=== PATIENT | female | born 1935 | race Caucasian/White ===

== ENCOUNTER 2017-03-19 09:18 | Emergency (ER) | payer OTHER ==
[2017-03-19 09:31] VITALS: TEMP 97.8; BMI 29.5
--- NOTE | 2017-03-19 09:45 | PDOC ---
Attending Attestation - Resident Resident Name: HomerArchie ramirez - ED Attending Attestation I have performed the following: I have examined & evaluated the patient, The case was reviewed & discussed with the resident, I agree w/resident's findings & plan, Exceptions are as noted - HPI HPI: 03/19/17 09:56 81y F hx of scoliosis, CAD, afib, hypothyroidism, hypertension, left breast ca s /p mastectomy presents with epistaxis. Pt typically gets epistaxis a few times a year typically but usually stops with pressure, today it persisted for approx 30 min. epistaxis stopped with pressure by ems prior to arrival. The pt denies any chest pain, shortness of breath, lightheadedness, palpitations. physical exam GENERAL: The patient is awake, alert, and fully oriented, Nontoxic - in no acute distress. HEAD: Normocephalic, atraumatic. EYES: extraocular movements intact, sclera anicteric, conjunctiva clear. ENT: Normal voice, Moist mucous membranes, dried blood in nare, no active bleeding currently NECK: Normal range of motion, supple LUNGS: Breath sounds equal, clear to auscultation bilaterally. No wheezes, no rhonchi, no rales. HEART: irregularly irregular, slightly tachycardic ABDOMEN: Soft, nontender, will PO hydrate will ck some basic labs to r/o anemia due to tachycardia 03/19/17 11:03 pts labs normal will recheck the pts vitals anticipate d/c with pmd/ent fu return precautions were discussed - Physicial Exam PE: 03/20/17 07:18 see above - Medical Decision Making 03/20/17 07:18 see above
--- NOTE | 2017-03-19 10:04 | PDOC ---
History of Present Illness - General Chief Complaint: Nasal Bleeding Stated Complaint: Nasal Bleeding Time Seen by Provider: 03/19/17 09:28 History Source: Patient Exam Limitations: No Limitations - History of Present Illness Initial Comments: 03/19/17 10:00 The patient is a 81F with a PMH of HTN, a-fib on plavix and ASA, hypothyroidism , who presented to the ED after an episode of epistaxis. She states that she woke up this morning and had a nose bleed which did not resolve after 20 minutes of applying pressure to her nose.She gets nosebleeds once every few months but they have never been this severe. She also states the got 2 new air conditioning units and has been using them consistently. Social: Does not smoke, drink, or use recreational drugs; lives independently Allergies: PCN Past History - Past Medical History Allergies/Adverse Reactions: Allergies Allergy/AdvReac Type Severity Reaction Status Date / Time Penicillins Allergy Verified 03/19/17 09:31 Home Medications: Ambulatory Orders Quinapril HCl [Accupril -] 10 mg PO DAILY #0 tablet 03/31/13 Acetaminophen [Tylenol .Extra-Strength -] 1,000 mg PO Q6H PRN 09/01/13 Alprazolam [Xanax] 0.25 mg PO DAILY PRN 09/01/13 Aspirin Coated [Ecotrin -] 81 mg PO HS 09/01/13 Calcium Carbonate [Tums] 200 mg PO PRN PRN 09/01/13 Cholecalciferol (Vitamin D3) [Vitamin D3] 2,000 unit PO DAILY 09/01/13 Cyanocobalamin [Vitamin B12 -] 1,000 mcg PO DAILY 09/01/13 Docusate Sodium [Colace -] 200 mg PO DAILY 09/01/13 Glucosamine HCl/MSM [Glucosamine MSM Liquid] 480 ml PO PRN PRN 09/01/13 Levothyroxine [Synthroid -] 25 mcg PO ASDIR 09/01/13 Multivitamin with Minerals [Multivitamins with Minerals] 1 each PO DAILY Pravastatin Sodium [Pravachol -] 40 tab PO HS 09/01/13 Triamterene/Hydrochlorothiazid [Triamterene-Hctz 37.5-25 mg Cp] 1 each PO DAILY PRN 09/01/13 Vitamin B Complex 1 each PO DAILY 09/01/13 Clopidogrel Bisulfate [Plavix -] 75 mg PO DAILY #0 05/06/14 Anemia: No Asthma: No Cancer: Yes (RECURRENT LEFT BREAST CA) Cardiac Disorders: Yes (HX AF, CAD) CVA: No COPD: No CHF: No Dementia: No Diabetes: No GI Disorders: Yes (diverticulosis,GERD) Disorders: No HTN: Yes Hypercholesterolemia: Yes Liver Disease: Yes (FATTY LIVER) Seizures: No Thyroid Disease: Yes (NODULES ON THYROID) - Surgical History Abdominal Surgery: Yes (TWISTED COLON) Appendectomy: Yes Cardiac Surgery: No Cholecystectomy: No Lung Surgery: No Neurologic Surgery: No Orthopedic Surgery: No - Psycho/Social/Smoking Cessation Hx Suicidal Ideation: No Smoking History: Never smoked Have you smoked in the past 12 months: No Hx Alcohol Use: No Drug/Substance Use Hx: No Substance Use Type: None Hx Substance Use Treatment: No Review of Systems - Review of Systems Able to Perform ROS?: Yes Is the patient limited Romansh proficient: No Constitutional: No: Chills, Fever, Weakness HEENTM: Yes: Nose Bleeding. No: Mouth Pain, Difficulty Swallowing Respiratory: No: Cough, Shortness of Breath Cardiac (ROS): Yes: Irregular Heart Rate. No: Chest Pain ABD/GI: Yes: Constipated (baseline). No: Diarrhea, Nausea, Vomiting : No: Burning, Dysuria, Discharge Neurological: Yes: Headache, Weakness. No: Numbness Hematologic/Lymphatic: No: Easy Bleeding, Easy Bruising *Physical Exam - Vital Signs Last Vital Signs Temp Pulse Resp BP Pulse Ox 97.8 F 110 H 20 141/92 98 03/19/17 09:27 03/19/17 09:27 03/19/17 09:27 03/19/17 09:27 03/19/17 09:27 - Physical Exam General Appearance: Yes: Nourished, Appropriately Dressed. No: Apparent Distress, Disheveled HEENT: positive: Other (dried blood in nasal mucosa). negative: Tonsillar Exudate, Tonsillar Erythema, Rhinorrhea Respiratory/Chest: positive: Lungs Clear, Normal Breath Sounds. negative: Chest Tender, Respiratory Distress Cardiovascular: positive: S1, S2, Irregularly Irregular Gastrointestinal/Abdominal: positive: Flat, Soft. negative: Tender, Guarding, Rebound, Tenderness Extremity: positive: Normal Inspection, Normal Range of Motion Integumentary: positive: Normal Color, Dry, Warm Neurologic: positive: Fully Oriented, Alert, Normal Mood/Affect ED Treatment Course - LABORATORY CBC & Chemistry Diagram: 03/19/17 10:00 03/19/17 10:00 Medical Decision Making - Medical Decision Making 03/19/17 10:07 The patient is an 81F who presents with a resolved episode of epistaxis. I have ordered basic labs to ensure a stable hgb and electrolytes. 03/19/17 11:22 Repeat vitals WNL. Labs WNL. Patient agrees for discharge. *DC/Admit/Observation/Transfer Diagnosis at time of Disposition: Epistaxis not due to trauma - Discharge Dispostion Disposition: HOME Condition at time of disposition: Improved Admit: No - Patient Instructions Printed Discharge Instructions: Nosebleed, DI for Nosebleed - Attestations Physician Attestion: 03/19/17 11:22 I, Dr. Archie Mejia, attest that this document has been prepared under my direction and personally reviewed by me in its entirety. I further attest, that it accurately reflects all work, treatment, procedures and medical decision -making performed by me.
[2017-03-19 10:11] LABS: BASOPHIL 0.2 % (0-2.0); EOSINOPHIL 0.2 % (0-4.5); MCHC 33.5 g/dl (32.0-36.0); MEAN CELL VOLUME 89.6 fl (80-96); MEAN PLT VOLUME 10.7 fl (7.5-11.1); NEUTROPHILS 73.6 % (42.8-82.8); PLATELET COUNT 66 K/MM3 (134-434); RDW 16.3 % (11.6-15.6); WHITE BLOOD COUNT 6.9 K/mm3 (4.0-10.0)
[2017-03-19 10:25] LABS: ALBUMIN 3.8 g/dl (3.4-5.0); ANION GAP 5 (8-16); CALCIUM 8.7 mg/dL (8.5-10.1); CO2 27 mmol/L (21-32); CREATININE 0.5 mg/dL (0.55-1.02); GLUCOSE,RANDOM 101 mg/dL (74-106); SGOT/AST 12 U/L (15-37); SGPT/ALT 24 U/L (12-78); TOT PROT 6.9 g/dl (6.4-8.2)
[2017-03-19 10:26] LABS: ALK PHOS 112 U/L (45-117)
[2017-03-19 10:36] LABS: INR 1.17 (0.82-1.09); PROTHROMBIN TIME (PATIENT) 12.9 SEC (9.98-11.88)
[2017-03-19 11:38] VITALS: BP 145/83; PULSE 92
== END 2017-03-19 11:38 | disposition home or self-care (01) ==
LOC: JER 09:18
DX: R04.0 Epistaxis (principal); I25.10 Atherosclerotic heart disease of native coronary artery without angina pectoris; I10 Essential (primary) hypertension; I48.91 Unspecified atrial fibrillation; Z79.01 Long term (current) use of anticoagulants; E03.9 Hypothyroidism, unspecified; Z85.3 Personal history of malignant neoplasm of breast; K59.00 Constipation, unspecified
CPT/HCPCS: 36415; 80053; 85025; 85610; 99283-25

== ENCOUNTER 2019-06-30 12:57 | Emergency (ER) | payer OTHER ==
[2019-06-30 13:05] VITALS: BP 159/95; PULSE 123; TEMP 97.5; BMI 29.5
--- NOTE | 2019-06-30 13:11 | PDOC ---
Rapid Medical Evaluation Chief Complaint: Nasal Bleeding Time Seen by Provider: 06/30/19 13:07 Medical Evaluation: Allergies Allergy/AdvReac Type Severity Reaction Status Date / Time Penicillins Allergy Verified 06/30/19 13:00 Vital Signs Temp Pulse Resp BP Pulse Ox 97.5 F L 123 H 20 159/95 98 06/30/19 13:01 06/30/19 13:01 06/30/19 13:01 06/30/19 13:01 06/30/19 13:01 06/30/19 13:07 The patient is an 83 y/o F on plavix presents to the ER today for nasal bleeding since 12pm today. Exam: clot forming in the L nare. No blood noted in the posterior pharynx Orders: defer to provider Pt to proceed to the ER for further evaluation Discharge Disposition - Diagnosis Epistaxis not due to trauma - Referrals - Patient Instructions - Post Discharge Activity
--- NOTE | 2019-06-30 13:39 | PDOC ---
History of Present Illness - General Chief Complaint: Nasal Bleeding Stated Complaint: NOSE BLEED Time Seen by Provider: 06/30/19 13:07 - History of Present Illness Initial Comments: 06/30/19 15:28 Pt is an 83 y/o F with a significant PMH of HTN, a-fib on plavix and ASA, hypothyroidism who presents to our Emergency Department due to a nose bleed. Pt endorses that she began to experience a nose bleed this past Sunday; that episode of bleeding resolved on its own. Pt denies any digital manipulation. Pt states her nose began to bleed again earlier today. Also denies any digital manipulation this episode. States he endured a similar bleed approximately 1 year ago where she was evaluated by an ENT physician who cauterized the bleed in her nose. Denies chest pain, shortness of breath, nausea, vomiting, or any other symptoms. Past History - Past Medical History Allergies/Adverse Reactions: Allergies Allergy/AdvReac Type Severity Reaction Status Date / Time Penicillins Allergy Verified 06/30/19 13:00 Home Medications: Ambulatory Orders Quinapril HCl [Accupril -] 10 mg PO DAILY #0 tablet 03/31/13 Acetaminophen [Tylenol .Extra-Strength -] 1,000 mg PO Q6H PRN 09/01/13 Alprazolam [Xanax] 0.25 mg PO DAILY PRN 09/01/13 Aspirin Coated [Ecotrin -] 81 mg PO HS 09/01/13 Calcium Carbonate [Tums] 200 mg PO PRN PRN 09/01/13 Cholecalciferol (Vitamin D3) [Vitamin D3] 2,000 unit PO DAILY 09/01/13 Cyanocobalamin [Vitamin B12 -] 1,000 mcg PO DAILY 09/01/13 Docusate Sodium [Colace -] 200 mg PO DAILY 09/01/13 Glucosamine HCl/MSM [Glucosamine MSM Liquid] 480 ml PO PRN PRN 09/01/13 Levothyroxine [Synthroid -] 25 mcg PO ASDIR 09/01/13 Multivitamin with Minerals [Multivitamins with Minerals] 1 each PO DAILY Pravastatin Sodium [Pravachol -] 40 tab PO HS 09/01/13 Triamterene/Hydrochlorothiazid [Triamterene-Hctz 37.5-25 mg Cp] 1 each PO DAILY PRN 09/01/13 Vitamin B Complex 1 each PO DAILY 09/01/13 Clopidogrel Bisulfate [Plavix -] 75 mg PO DAILY #0 05/06/14 Anemia: No Asthma: No Cancer: Yes (RECURRENT LEFT BREAST CA) Cardiac Disorders: Yes (HX AF, CAD) CVA: No COPD: No CHF: No Dementia: No Diabetes: No GI Disorders: Yes (diverticulosis,GERD) Disorders: No HTN: Yes Hypercholesterolemia: Yes Liver Disease: Yes (FATTY LIVER) Seizures: No Thyroid Disease: Yes (NODULES ON THYROID) - Surgical History Abdominal Surgery: Yes (TWISTED COLON) Appendectomy: Yes Cardiac Surgery: No Cholecystectomy: No Lung Surgery: No Neurologic Surgery: No Orthopedic Surgery: No - Immunization History Immunization Up to Date: Yes - Psycho Social/Smoking Cessation Hx Smoking History: Never smoked Have you smoked in the past 12 months: No Hx Alcohol Use: No Drug/Substance Use Hx: No Substance Use Type: None Hx Substance Use Treatment: No *Physical Exam - Vital Signs Last Vital Signs Temp Pulse Resp BP Pulse Ox 97.5 F L 123 H 20 159/95 98 06/30/19 13:01 06/30/19 13:01 06/30/19 13:01 06/30/19 13:01 06/30/19 13:01 Medical Decision Making - Medical Decision Making 06/30/19 15:32 Pt given TXA to nasal bleed. Vaseline applied to area as well. ENT inspection revealed erythematous area in both nostrils. No acitve bleeding. Discharge - Discharge Information Problems reviewed: Yes Clinical Impression/Diagnosis: Epistaxis not due to trauma Condition: Improved Disposition: HOME - Admission No - Follow up/Referral Referrals: Clarence Aguilar MD [Staff Physician] - Satya Carpio MD [Primary Care Provider] - - Patient Discharge Instructions Patient Printed Discharge Instructions: DI for Nosebleed Additional Instructions: You were treated in our emergency Department due to a nose bleed. Please follow up with your ENT doctor this week. Please return to the emergency department if you begin to experience further bleeding, shortness of breath, chest pain, or any other abnormal symptom. - Post Discharge Activity
--- NOTE | 2019-06-30 15:02 | PDOC ---
Documentation entered by Grabiel Gutierres SCRIBE, acting as scribe for Francois Rawls MD. Francois Rawls MD: This documentation has been prepared by the Bhavik hay Daniel, SCRIBE, under my direction and personally reviewed by me in its entirety. I confirm that the documentation accurately reflects all work, treatment, procedures, and medical decision making performed by me. Attending Attestation - Resident Resident Name: David Jimenez - ED Attending Attestation I have performed the following: I have examined & evaluated the patient, The case was reviewed & discussed with the resident, I agree w/resident's findings & plan - HPI HPI: 06/30/19 14:48 The patient is a year old with a past medical history of afib (aspirin), CAD, HTN, HLD, GERD, and diverticulitis here today for evaluation of nasal bleeding. The patient reports that she had a spontaneous nose bleed on sunday (06/29/19) that resolved on its own but returned today after going to the store. She notes 1 prior episode last year. She denies any cold or congestion leading up to her nose bleed. Patient denies headache, lightheadedness. Denies fever, chills. Denies chest pain, shortness of breath. Denies nausea, vomiting, diarrhea, abdominal pain. Allergies: penicillins PCP: Satya Carpio - Physicial Exam PE: 06/30/19 14:48 Oropharynx clear, airway patent, packing in place, bruising right shoulder without ecchymosis or petechiae GENERAL: The patient is awake, alert, and fully oriented, in no acute distress. HEAD: Normal with no signs of trauma. EYES: Pupils equal, round and reactive to light, extraocular movements intact, sclera anicteric, conjunctiva clear with no pallor. ENT: +packing in place. Airway clear. Ears normal, oropharynx clear without exudates. Moist mucous membranes. NECK: Normal range of motion, supple without lymphadenopathy, JVD, or masses. LUNGS: Breath sounds equal, clear to auscultation bilaterally. No wheeze/ crackles. HEART: Regular rate and rhythm, normal S1 and S2 without murmur or rub. ABDOMEN: Soft/nontender/nondistended. BS wnl. No guarding or rebound. No palpable masses. No hepatosplenomegaly. EXTREMITIES: Normal range of motion, no edema. No clubbing or cyanosis. No cords, erythema, or tenderness. NEUROLOGICAL: Cranial nerves II through XII grossly intact. Normal speech, normal gait. PSYCH: Normal mood, normal affect. SKIN: +right shoulder bruising without ecchymosis or petechiae. Warm, Dry, normal turgor, no rashes or lesions noted. - Medical Decision Making 06/30/19 14:45 83-year-old female with history of atrial fibrillation on aspirin and Plavix presents with atraumatic epistaxis. Has history of same in the past, began yesterday and was self resolved, recurred today. Hemodynamically stable, exam as noted with packing in place and no evidence of active bleeding. 83-year-old female on anticoagulants presents with atraumatic epistaxis, nearly controlled without significant bleeding at this time. TXA gauze applied Reassess and disposition accordingly ENT follow-up, understands return criteria
== END 2019-06-30 15:54 | disposition home or self-care (01) ==
LOC: JER 12:57
PROC: 2Y41X5Z Packing of Nasal Region using Packing Material (ICD-10-PCS; principal; 2019-06-30)
DX: R04.0 Epistaxis (principal); I48.91 Unspecified atrial fibrillation; Z79.01 Long term (current) use of anticoagulants; Z79.82 Long term (current) use of aspirin; E03.9 Hypothyroidism, unspecified; Z88.0 Allergy status to penicillin
CPT/HCPCS: 30901; 30901-25; 99282-25

== ENCOUNTER 2019-10-03 09:06 | Day surgery (SDC) | payer OTHER ==
[2019-10-03] MEDS ORDERED: LIDOCAINE HCL 1%, 10 MG/ML (20ML VIAL) NR ONE (10:00)
[2019-10-03] MEDS ORDERED: ALPRAZolam 0.25 MG TABLET PO ONE (10:18)
--- NOTE | 2019-10-03 10:19 | PN ---
Progress Note (short form) - Note Progress Note: Patient seen and examined Admitted for outpatient satellite bone marrow . History of ASHD, CAD, HBP, HPL, atrial fibrillation in need of cardiac assessment . Problem of thrombocytopenia progressive over time precluding evaluation. PMH- melanoma - right arm- 2006; Lumpectomy left breast - , and mastectomy in early . Social History - living alone ROS - No headache , diplopia, epistaxis, chest pain, + SOB, + palpitations, , no nausea, emesis, diarrhea, constipation, melena,o dysuria, hematuria, some myalgias, arthralgias BP--136/83 P--100 T--98.1 RR--18 HEENT: MYNOR, EOM Intact Oropharynx: No thrush, No mucositis Neck: Supple Nodes: Without adenopathy Breasts: left mastectomy Cor: atrila fib systolic murmur, No gallops Lungs: Clear to P&A Abd: Soft, Normal bowel sounds, No organomegaly Ext:No significant edema Skin: No rashes, Integument intactImpression: Thrombocytopenia --? etiology Plan : Bone marrow evaluation.
[2019-10-03 16:30] VITALS: BP 138/82; PULSE 112; TEMP 98.1
--- NOTE | 2019-10-14 16:21 | PATH ---
Surgical Pathology Report Patient Name: CYNTHIA MCGOVERN Med. Rec. #: [id number] /Age/Gender: 1935 (Age: 84) / F Account: [id number] Location: AMBULATORY SURG Taken: 10/03/2019 Received: 10/03/2019 Reported: 10/14/2019 Physicians: Ulices Buck M.D. Specimen(s) Received A: BONE MARROW BIOPSY B: BONE MARROW ASPIRATION SMEARS C: BONE MARROW BLOOD Clinical History Thrombocytopenia of unknown etiology Final Diagnosis A-C.BONE MARROW, CORE, ASPIRATE SMEARS, BLOOD, BIOPSY: HYPERCELLULAR MARROW (~40% CELLULARITY) WITH MATURING TRILINEAGE HEMATOPOIESIS AND MILD MEGAKARYOCYTIC HYPERPLASIA. NO EVIDENCE OF AN INVOLVEMENT BY LYMPHOMA. PLASMA CELLS (<5%) ARE POLYTYPIC. SEE COMMENT. Comment: The thrombocytopenia, along with the megakaryocytic hyperplasia, is compatible with peripheral platelet destruction and/or sequestration. Occasional hypolobated megakaryocytes are seen. Rare, megakaryocytes with widely spaced separate nuclei are noted. Though overt dysplastic features are not seen in the myeloid and erythroid cells, the possibility of an early/emerging myelodysplastic syndrome cannot be completely excluded. Karyotypic analysis shows a normal female karyotype. FISH study for MDS is negative. Pending [facility] myeloid study will be helpful in identification of a clonal abnormality; a summary report will follow. Flow cytometry does not show evidence for an increased blast population or a lymphoproliferative disorder. Correlation with relevant clinical and laboratory findings is recommended. This case was sent to Dr. Vegas from [facility], [place], [place] ([id number]) the diagnosis above reflects her opinion. FLOW CYTOMETRY performed and interpreted at [facility] shows the following: INTERPRETATION: No immunophenotypic evidence for an increase in blasts or a lymphoproliferative disorder. Evidence of abnormal myelomonocytic maturation/ left shift. Phenotype: There is no increase in CD34 and/or CD117 positive blasts, and they comprise 3% of total cells. Myeloid cells exhibit partial loss of CD10, CD11b, CD13 and CD16 as well as aberrant CD56 expression. Mature monocytes with a normal immunophenotype are 12% of total cells, they exhibit aberrant CD56 and partial loss of CD14. The B-cells (0.3% of total cells) are polytypic and the T-cells (7.2% of total cells) do not show priest T-cell antigen deletion. CD4:CD8=0.7:1. CD56+ and/or CD57+ T/NK-large granular lymphocytes are rare (<1% of total cells). FLUORESCENCE IN-SITU HYBRIDIZATION performed and interpreted at [facility] shows the following: INTERPRETATION: MDS panel 1. Negative for monosomy 5 and a deletion of CSF1R/RPS14 on the long arm of chromosome 5 at q33. 2. Negative for monosomy 7 and a deletion of MDFIC on the long arm of chromosome 7 at q31. 3. Negative for trisomy 8. 4. Negative for a deletion of PTPRT on the long arm of chromosome 20 at q12. CHROMOSOME ANALYSIS performed and interpreted at [facility], [place], [place] shows the following: RESULTS: 46, XX[20] Female karyotype INTERPRETATION: Normal female chromosome complement observed in all cells examined. There was no evidence of a chromosome abnormality within the limits of the technology utilized. See [facility] reports for additional details. Electronically Signed Nara Resendiz M.D. 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 Report faxed to Dr. Buck on 10/20/2019. See [facility] report for additional details (Specimen #: [id number]). Nara Resendiz M.D. Gross Description A. Received in formalin, labeled with the patient's name and indicated on the requisition to be a bone marrow biopsy, is a 1.3 cm in length x 0.2 cm in diameter tripathi, cylindrical portion of bone with attached blood clot. The specimen is submitted in toto in one cassette, following decalcification. B. Received are 9 bone marrow aspiration smear slides. C. Received are 2 green top tubes of blood which are sent to [facility]. [facility]
== END 2019-10-03 12:45 | disposition home or self-care (01) ==
LOC: JASUSAT 09:06 → J7W 09:07 → JASUSAT 12:45
PROVIDERS: ATTEND Internal Medicine Hematology & Oncology
PROC: 07DR3ZX Extraction of Iliac Bone Marrow, Percutaneous Approach, Diagnostic (ICD-10-PCS; principal; 2019-10-03)
DX: D69.6 Thrombocytopenia, unspecified (principal); Z85.820 Personal history of malignant melanoma of skin
CPT/HCPCS: 38221; 88300-TC; 88305-TC; 88311-TC; 88313-TC